=== PATIENT | female | born 1960 | race Two or more races ===

== ENCOUNTER 2017-03-21 12:40 | Emergency (ER) | payer MEDICARE, MEDICAID ==
[~2017-03-21] VITALS: Ht 152.4 cm; Wt 63.5 kg
--- NOTE | 2017-03-21 12:42 | NUR ---
[id number] FOR PALPITATIONS SINCE 1000. PATIENT DENIES CHEST PAIN. NO SOB NOTED. SATING WELL ON ROOM AIR. SKIN IS WARM TO TOUCH AND NON DIAPHOETIC. PT IS AFEBRILE. VSS
--- NOTE | 2017-03-21 13:50 | NUR ---
Patient is resting comfortably in bed with eyes closed. Easily aroused.
[2017-03-21 13:52] LABS: BASOPHILS # (AUTO) 0.2 /CMM (0.0-0.2); BASOPHILS % (AUTO) 1.4 % (0.0-2.0); EOSINOPHILS # (AUTO) 0.1 /CMM (0.0-0.7); HEMATOCRIT 43 % (33-45); HEMOGLOBIN 14.7 g/dL (11.5-14.8); LYMPHOCYTES % (AUTO) 14.1 % (20.0-44.0); MEAN CORPUSCULAR HEMOGLOBIN 30 PG (26.0-33.0); MEAN CORPUSCULAR HGB CONC 34 g/dl (31.0-36.0); MEAN CORPUSCULAR VOLUME 88 fL (82-100); MONOCYTES # (AUTO) 0.6 /CMM (0.1-1.30); MONOCYTES % (AUTO) 4.2 % (2.0-12.0); NEUTROPHILS # (AUTO) 11.2 /CMM (1.8-8.9); NEUTROPHILS % (AUTO) 79.3 % (43.0-81.0); PLATELET COUNT (AUTO) 310 /CMM (150-450); RDW COEFFICIENT OF VARIATION 12.7 (11.5-15.0); RED BLOOD CELL COUNT(AUTO) 4.92 MIL/uL (4.0-5.2); WHITE BLOOD COUNT (AUTO) 14.1 K/uL (4.3-11.0)
[2017-03-21] MEDS ORDERED: IV NS 0.9% 500 ML BAG IV ONE (14:00)
[2017-03-21 14:03] LABS: CALCIUM, SERUM 8.7 mg/dL (8.5-10.1); CARBON DIOXIDE 30 mmol/L (21-32); CHLORIDE 109 mmol/L (98-107); CREATININE 0.8 mg/dL (0.6-1.3); GLUCOSE 53 mg/dL (74-106); POTASSIUM 3.5 mmol/L (3.5-5.1); SODIUM SERUM 145 mmol/L (136-145); UREA NITROGEN, BLOOD 14 mg/dL (7-18)
[2017-03-21 14:07] LABS: PROTHROMBIN TIME 10.4 SECS (9.5-12.7)
[2017-03-21 14:12] LABS: TROPONIN I < 0.017 ng/mL (0.00-0.056)
[2017-03-21] MEDS ORDERED: LABETALOL HCL IV 100MG VIAL IV ONE (15:00)
--- NOTE | 2017-03-21 15:00 | NUR ---
PT MEDICATED ORDERED. WILL MONITOR VS.
[2017-03-21] MEDS ORDERED: LABETALOL 20 MG/4 ML VIAL ONE (15:08)
[2017-03-21] MEDS ORDERED: LABETALOL HCL IV 100MG VIAL ONE (15:09)
--- NOTE | 2017-03-21 16:50 | NUR ---
IV removed. Catheter intact and site benign. Pressure and 4x4 applied to site. No bleeding noted.
--- NOTE | 2017-03-21 16:55 | NUR ---
Patient discharged to home in stable condition. Written and verbal after care instructions given. Patient verbalizes understanding of instruction.
[2017-03-21 16:56] VITALS: BP 148/75
== END 2017-03-21 16:57 | disposition home or self-care (01) ==
LOC: ER 12:44
DX: I10 Essential (primary) hypertension (principal); F15.10 Other stimulant abuse, uncomplicated; E11.9 Type 2 diabetes mellitus without complications; E86.0 Dehydration; F41.9 Anxiety disorder, unspecified; F17.200 Nicotine dependence, unspecified, uncomplicated; G89.29 Other chronic pain; Z98.82 Breast implant status
CPT/HCPCS: 36415; 71010-TC; 80048-TC; 80305; 83735-TC; 84484-TC; 85025-TC; 85730-TC; A4606; G0480; J3490; J7040; Z7610

== ENCOUNTER 2021-10-06 03:35 | Emergency (ER) | payer MEDICARE, OTHER ==
[~2021-10-06] VITALS: Ht 152.4 cm; Wt 56.7 kg
--- NOTE | 2021-10-06 03:59 | NUR ---
LAB AT BEDSIDE
[2021-10-06] MEDS ORDERED: hydrALAZINE HCL IV 20 MG VIAL IV ONE (04:00)
[2021-10-06] MEDS ORDERED: ONDANSETRON HCL/PF 4 MG/2 ML VIAL IV ONE (04:00)
--- NOTE | 2021-10-06 04:03 | NUR ---
BIBRA39 FROM THE STREETS FOR PALPITATIONS AND NAUSEA. PATIENT ALERT AND ORIENTED X3. AMBULATORY WITH CANE, DENIES HAVING SOB. ON MONITOR AND POX.
[2021-10-06] MEDS ORDERED: hydrALAZINE HCL IV 20 MG VIAL ONE (04:05)
[2021-10-06] MEDS ORDERED: ONDANSETRON HCL/PF 4 MG/2 ML VIAL ONE (04:05)
[2021-10-06 04:16] LABS: BASOPHILS # (AUTO) 0.1 K/uL (0.0-0.2); BASOPHILS % (AUTO) 0.8 % (0.0-2.0); EOSINOPHILS % (AUTO) 0.7 % (0.0-6.0); HEMATOCRIT 44 % (33-45); HEMOGLOBIN 15.1 g/dL (11.5-14.8); LYMPHOCYTES # (AUTO) 1.4 K/uL (0.8-4.8); LYMPHOCYTES % (AUTO) 15.9 % (20.0-44.0); MEAN CORPUSCULAR HGB CONC 35 g/dl (31.0-36.0); MEAN CORPUSCULAR VOLUME 88 fL (82-100); MONOCYTES # (AUTO) 0.5 K/uL (0.1-1.30); MONOCYTES % (AUTO) 5.9 % (2.0-12.0); NEUTROPHILS # (AUTO) 6.8 K/uL (1.8-8.9); NEUTROPHILS % (AUTO) 76.7 % (43.0-81.0); PLATELET COUNT (AUTO) 299 K/uL (150-450); RED BLOOD CELL COUNT(AUTO) 4.98 MIL/uL (4.0-5.2); WHITE BLOOD COUNT (AUTO) 8.8 K/uL (4.3-11.0)
[2021-10-06 04:23] LABS: CALCIUM, SERUM 8.9 mg/dL (8.5-10.1); CARBON DIOXIDE 25 mmol/L (21-32); CHLORIDE 98 mmol/L (98-107); CREATININE 0.7 mg/dL (0.6-1.3); GLUCOSE 326 mg/dL (74-106); POTASSIUM 4.4 mmol/L (3.5-5.1); SODIUM SERUM 136 mmol/L (136-145); UREA NITROGEN, BLOOD 14 mg/dL (7-18)
[2021-10-06 04:29] LABS: ALANINE AMINOTRANSFERASE 35 U/L (12-78); ALBUMIN 3.8 g/dL (3.4-5.0); ALKALINE PHOSPHATASE 112 U/L (46-116); ASPARTATE AMINOTRANSFERASE 16 U/L (15-37); BILIRUBIN,DIRECT 0.2 mg/dL (0.0-0.2); BILIRUBIN,TOTAL 0.6 mg/dL (0.2-1.0)
[2021-10-06] MEDS ORDERED: AZIT250T13 PO (05:22)
--- NOTE | 2021-10-06 05:32 | NUR ---
Patient discharged to home in stable condition. Written and verbal after care instructions given. Patient verbalizes understanding of instruction.IV removed. Catheter intact and site benign. Pressure and 4x4 applied to site. No bleeding noted.
[2021-10-06 05:40] VITALS: BP 156/80
== END 2021-10-06 05:41 | disposition home or self-care (01) ==
LOC: ER 03:47
DX: I16.0 Hypertensive urgency (principal); R00.2 Palpitations; J18.9 Pneumonia, unspecified organism; E11.9 Type 2 diabetes mellitus without complications; F17.200 Nicotine dependence, unspecified, uncomplicated; Z98.890 Other specified postprocedural states; Z60.2 Problems related to living alone
CPT/HCPCS: 36415; 71045; 80048; 80076; 84484; 85025; 93005; 96374; 96375; 99285; J0360; J2405

== ENCOUNTER 2021-10-06 11:09 | Emergency (ER) | payer MEDICARE, OTHER ==
[~2021-10-06] VITALS: Ht 152.4 cm; Wt 56.7 kg
[~2021-10-06 11:09] MED LIST: AZIT250T13 PO
--- NOTE | 2021-10-06 11:19 | NUR ---
BIBRA39 [facility] C/O WEAKNESS, "I HAVE A HEART INFECTION." SEEN AND WAS CLEARED LAST NIGHT AND WAS WAITIG FOR CLIENT SERVER PROGRAMMER.
--- NOTE | 2021-10-06 12:16 | NUR ---
CALLED JOSUE CHAPPELL LEFT VM
--- NOTE | 2021-10-06 13:49 | NUR ---
TA CALLED LEFT VM
--- NOTE | 2021-10-06 14:14 | NUR ---
"SS Consult: SS consult requested for homeless patient. JOSUE met with pt. bedside. The pt. is a 61 year old female in the [place]. The pt. is alert & oriented x 3 and makes good eye contact. The pt. stated she was recently living at a convalesent home but decided to leave because there was a lot of drug & alcohol use and she is Confucianist and did not feel comfortable. SW explored pt.'s support system. Patient stated sgmartín has no friends or family she can reside with. Pt. denies SI/HI and denies hallucinations. SW offered [place] and the pt. accepted. JOSUE provided pt. with bus TAP card and printed bus directions to [facility][[id number] [facility] [address]; [phone]]. SW called [facility] and they stated the pt. would need to show up in person for eval and theyw ill ssist with [place]. Noted. Pt. is agreeable. SW offered pt. homeless resources and pt. refused. The pt. also refused to sign homeless waiver and it was placed in thept.'s chart. Year-round shelters: [place] [facility] [address] [place], [place] [id number] ; [facility] [address] [place] [address]; [facility] Zar[address] [facility] [address] Winter Shelters: SPA 2 | [facility] ChurcProvider: [facility] Address: Confidential (call for location ) Population Served: Coed # of Beds: 57 SPA 4 | [facility] Provider: [facility] Address: [address] [place] [address], [address] # of Beds: 49 Population Served: Coed SPA 6 | [facility] Provider: [facility] Address: [address] [place] [address] # of Beds: 49 Population Served: Coed Andrew [facility] Provider: Asmita Abreu ARCamila Address: [address] [place] [address] # of Beds: 20 Population Served: Women AYANNA Facility Provider: [facility] Address: [address] [facility] [address] # of Beds: 30 Population Served: Women SPA 8 | [facility] Former Library Provider: Agnieszka kathleen Mariajose Address: [address] [facility] [address] # of Beds: 65 Population Served: Coed Hygiene: [facility]: [address] [place] ; [facility] [address] [facility] ; [facility] [address] [place] . Food Resources: [place] [facility] at [facility]- [address] [facility]; Meet Each Need with Dignity ([facility]) [address] [facility] [address] [place]; [facility] Food [facility] [address] [facility]; [facility] 85[address] [facility]. Mental Health resources provided: [facility] [address] [place], [place] [phone] ; [facility] [address] [facility] [address], [place], [place] [phone] ; Alba Carmona [facility] [address] [place] [address] ; [facility] [address] [place], [place] [phone] Healthcare Clinics: [facility] [address] [facility], [address] [place]. [place] ; [facility] [address] [facility] [address] [place] [address]; [facility] [address] [facility]. [place] [phone] Counseling--Outpatient [facility] [address] [facility], [place] [address] (Specializes in in-depth psychotherapy for emotional distress: anxiety, depression, interpersonal conflicts, life transitions, childhood abuse) [facility] [address] [place] [address] (Assist with solving problem marital difficulties, separation & divorce, aging parents, & grief, chronic & terminal illness) [facility] [address] [place] [address] (Deal with loss & grief, anxiety, marital difficulties) Homebound/Mental Health Services [address] [facility] [address] [place] [address] (Provide in-home mental services to people who are incapable of leaving their homes) [facility] Elderly Senior Service/Resource Center [address] [place] [address] [facility] [address] [place] [address] PSYCHIATRIC OUTPATIENT SERVICES [facility] Partial Hospitalization and Intensive Outpatient Program (Managed Care and [place] Only)[address] [facility] [phone] [facility] Partial Hospitalization and Outpatient Bklmoco85549 [facility] [address] [place], [place] [phone] [facility] Elv[address] [facility] [address] [place], [place] [phone] [facility] Partial Hospitalization and Outpatient Rawilpg49566 [place], [phone] Substance Abuse resources provided included: [facility] Substance Abuse Self-Helpline (SAS) ; CRI -HELP [address] [facility] [place] [address] ; [facility] [address] [facility] [address] ; [facility] [address] [place] [address] ; [facility] [address] [facility] [phone] ; [facility] Treatment [facility] [address] [facility] [address] ; [facility] 909 Formerly [facility] [phone] ; [facility] Substance Abuse Helpline(SAS)[facility] ; [facility] Family Counseling ; [facility] [place]; [facility] [place]; [facility] [place]; I-ADARP [facility] [place]; [facility] [place]; [facility] [place]; [facility] [place]; [facility]'s [employer] [place]; Alcoholics Anonymous -SFV; Zulay ; Marijuana Anonymous -SFV; Narcotics Anonymous www.[email or web address];"
--- NOTE | 2021-10-06 14:20 | NUR ---
PT WAS GIVEN RESOURCED FROM SW AND A BUS PASS. PT WAS DISCHARGED AND LEFT PRIOR TO SIGNING DISCHARGE PAPERWORK.
[2021-10-06 14:52] VITALS: BP 161/81
== END 2021-10-06 15:05 | disposition home or self-care (01) ==
LOC: ER 11:13
DX: J18.9 Pneumonia, unspecified organism (principal); I10 Essential (primary) hypertension; E11.9 Type 2 diabetes mellitus without complications; F41.9 Anxiety disorder, unspecified; F17.200 Nicotine dependence, unspecified, uncomplicated; Z98.890 Other specified postprocedural states; Z88.1 Allergy status to other antibiotic agents; Z60.2 Problems related to living alone